=== PATIENT | female | born 1935 | race Caucasian/White ===

== ENCOUNTER → 2017-06-09 09:50 | Outpatient (CLI) | payer MEDICARE, BC ==
[2014-10-10 13:28] VITALS: BMI 27.1
[~2017-06-09 09:50] MED LIST: ASPIRIN EC81 M1 PO; ELIQUIS2.5 MG PO; METOPROLOL TART50 MG PO; PERCOCET 10/3251 TA1 PO; SYNTHROID50 MCG PO; VITAMIN D2000 UNIT PO; ZANTAC150 MG PO
== END | disposition home or self-care (01) ==
LOC: D.US 09:50
DX: R10.9 Unspecified abdominal pain (principal)

== ENCOUNTER → 2017-06-13 10:54 | Outpatient (CLI) | payer MEDICARE, BC ==
[2014-10-10 13:28] VITALS: BMI 27.1
== END | disposition home or self-care (01) ==
LOC: D.CT 10:54
DX: R93.5 Abnormal findings on diagnostic imaging of other abdominal regions, including retroperitoneum (principal)

== ENCOUNTER 2017-11-22 12:26 | Inpatient (IN) | payer MEDICARE, BC ==
[~2017-11-22] VITALS: Ht 167.6 cm; Wt 78.0 kg
--- NOTE | ~2017-11-22 | DS ---
PATIENT:SERENA MARX :35 MEDICAL RECORD: [id number] DISCHARGE SUMMARY ADMISSION DATE: 11/22/17 DISCHARGE DATE: 11/25/17 DATE OF ADMISSION: 11/22/2017. DATE OF DISCHARGE: 11/25/2017. ADMISSION DIAGNOSES: Right upper quadrant epigastric abdominal pain, anemia, dyspnea on exertion. DISCHARGE DIAGNOSES: Right upper quadrant abdominal pain, anemia. CONSULTS: GI, Carmella Garcia MD PROCEDURES: CT of the abdomen and pelvis, no significant findings. EGD, mild gastritis. PIPIDA scan, decreased functioning gallbladder. HOSPITAL COURSE: The patient had an uneventful hospital course with us. She had an elevated white count. On admission was started empirically on IV antibiotics, underwent procedures as noted above, no acute significant findings. She is tolerating regular diet. With her iron deficiency anemia, she will have a colonoscopy as an outpatient. Also, we discussed possible outpatient cholecystectomy with Dr. Vergara on followup. The patient is anxious to go home, discharged to home in significantly improved condition. Vital signs on discharge: Temperature 97.9, blood pressure 147/50, heart rate 80, respirations 18, O2 sat 98% on room air. The patient is ambulating independently. H&H is stable at 9.9 and 30.3. We will follow up for further outpatient treatment as an outpatient. DISCHARGE MEDICATIONS: Per med rec. PHYSICAL EXAMINATION: HEART: Regular rate and rhythm. LUNGS: Clear. ABDOMEN: Soft, bowel sounds positive. EXTREMITIES: Present times 4. NEUROLOGIC: Intact. DISPOSITION: The patient is discharged to home. Discussed discharge planning with the patient. She agrees with the plan. TRANSINT:[id number] Voice Confirmation ID: [id number] DOCUMENT ID: [id number] DANTE NEW DO at 0813 CC: [id number] DICTATION DATE: 11/25/17 0746 GERIATRIC NURSING ASSISTANT: 11/25/17 1119 DIS IN 11/25/17 [id number] [place] [address]
--- NOTE | ~2017-11-22 | HP ---
PATIENT: SERENA MARX MEDICAL RECORD: [id number] ACCOUNT: [id number] LOCATION:[facility] : 35 ADMISSION DATE: 11/22/17 HISTORY AND PHYSICAL EXAMINATION HISTORY: She is an 82-year-old female presents to the office with one-day history of abdominal pain with nausea and vomiting. She does state that she has been short of breath a little bit more over the last several months, easily short of breath on exertion. She does see Dr. Dennis. She states had a normal echo a few months back, but primarily presented because she was thinking she had a gallbladder issue. She was complaining of pain in right upper and midepigastric area of her abdomen with nausea and vomiting. Pain got quite severe last night. She has had some urinary frequency as well. On presentation in the office, her temperature was 99. Her white count was 11.7 with an H&H of 8.7 and 28.8. This was compared to an H&H of 11 and 35 about 5 months ago. She was admitted to the hospital for abdominal pain with anemia. Urine showed positive nitrites and WBCs on high-power field, consistent with UTI as well. PAST MEDICAL HISTORY: Significant for hypertension and hypothyroidism. She also has history of osteopenia. She does have history of some iron deficiency in the past, but very mild. MEDICATIONS: She has medicines at home that include metoprolol ER 50 mg daily, aspirin 81 mg daily, ranitidine 150 mg twice daily, Synthroid 50 mcg daily, vitamin D. SOCIAL HISTORY: She has a history of tobacco use, but quit over 40 years ago. 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 Colonoscopies in the past with some polyps removal, last done in [address] Garcia. FAMILY HISTORY: Noncontributory. REVIEW OF SYSTEMS: CONSTITUTIONAL: Little bit more complaining of some fatigue. HEENT: She denies any headaches, visual or auditory changes. No sore throat, rhinorrhea, or dysphagia. CARDIOPULMONARY: She denies any chest pain. She has had some mild dyspnea on exertion. She denies any cough or hemoptysis. GASTROINTESTINAL: Abdominal pain, better this morning but still present, about 3/10 right now. She currently has no nausea. She has not eaten since a little bit. She has had some loose stool today, had a lot of diarrhea and vomiting of yellowish emesis last night. She denies any black tarry stools that she has noticed recently or in the past couple of weeks. GENITOURINARY: She has had some urinary frequency. MUSCULOSKELETAL: No joint pain, swelling, or erythema. PHYSICAL EXAMINATION: VITAL SIGNS: Temperature 99.1, blood pressure 120/76, pulse of 80, respirations of 12. HEENT: PERRLA. EOMI. Pharynx clear. NECK: Supple. No JVD or adenopathy. HEART: S1, S2. No murmurs, rubs, or gallops. LUNGS: Clear with no rhonchi or wheezing. HISTORY AND PHYSICAL [id number] SERENA MARX ABDOMEN: Soft. Mild tenderness in right upper quadrant and midepigastric to palpation. No rebound, guarding, or rigidity. EXTREMITIES: No clubbing, cyanosis, or edema. Her white count was 11.7 with H&H of 8.7 and 28.8 with platelet count of 314. Positive nitrates on UA with trace blood and 5-10 wbc's per high-power field. Abdominal x-ray showed nonspecific bowel gas pattern. ASSESSMENT AND PLAN: Abdominal pain with anemia. Some dyspnea on exertion. We are going to get a stat CT of abdomen and pelvis. Because of anemia with symptomatic dyspnea on exertion, we are going to transfuse 2 units of packed red blood cells. We have asked Dr. Garcia to consult. Zofran and morphine p.r.n. We will start her on IV Invanz for the abdominal pain, possible cholecystitis, which also we will use to cover for what appears to be UTI. Urine culture is pending. Labs are pending. Continue with home metoprolol for hypertension and Synthroid for hypothyroidism. We will continue to follow clinically. TRANSINT:[id number] Voice Confirmation ID: [id number] DOCUMENT ID: [id number] FRANCISCO J PATEL DO at 0727 CC: [id number] DICTATION DATE: 11/22/17 1207 CAR OILER: 11/22/17 1601 DIS IN 11/25/17 [facility] [address] [place] [address]
[2017-11-22 14:31] LABS: BASOPHILS 0.2 % (0-2); EOSINOPHILS 2.4 % (0-7); HEMATOCRIT 28.2 % (36.0-48.0); HEMOGLOBIN 9.1 g/dL (12-16); IMMATURE GRANULOCYTES 0.3 % (0-5); LYMPHOCYTES 25.4 % (15-50); MCH 26.2 pg (26.0-34.0); MCHC 32.3 g/dL (31.0-37.0); MCV 81.3 fL (80.0-100.0); MEAN PLATELET VOLUME 10.7 fL (7.4-10.4); MONOCYTES 6.1 % (2-11); NEUTROPHILS 65.6 % (40-80); PLATELET COUNT 331 10x3/uL (130-400); RBC 3.47 10x6/uL (4.00-5.40); RDW 14.2 % (11.5-14.5); WBC 10.5 10x3/uL (4.8-10.8)
[2017-11-22 14:34] LABS: APTT 33.2 SECONDS (22.8-39.4); INR 1.03 (0.85-1.17); PROTIME 13.1 SECONDS (11.6-15.0)
[2017-11-22 14:42] LABS: ALBUMIN 3.4 g/dL (3.4-5.0); ANION GAP 11.1 mmol/L (8-16); BILIRUBIN - TOTAL 0.28 mg/dL (0.2-1.3); CALCIUM 9.3 mg/dL (8.5-10.1); CARBON DIOXIDE 26.2 mmol/L (21.0-32.0); CREATININE - SERUM 0.9 mg/dL (0.6-1.3); POTASSIUM - SERUM 4.3 mmol/L (3.5-5.1); PROTEIN - SERUM 7.8 g/dL (6.4-8.2)
[2017-11-22 14:47] LABS: % SATURATION 4 % (15-55); IRON 20 ug/dl (35-150); TOTAL IRON BIND CAPACITY 456 ug/dl (260-445); UNSAT IRON BIND CAPACITY 436 ug/dl (150-375)
[2017-11-22 14:52] LABS: THYROID STIMULATING HORMONE 2.58 uIU/mL (0.36-3.74)
[2017-11-22 15:02] VITALS: BP 153/62; BMI 27.8
[2017-11-22 17:41] VITALS: BP 153/62
[2017-11-22 20:53] VITALS: BP 137/60
[2017-11-23 04:45] VITALS: BP 148/68
[2017-11-23 04:52] LABS: APPEARANCE CLOUDY (CLEAR); BACTERIA MODERATE /hpf (NONE SEEN); BILIRUBIN NEGATIVE (NEGATIVE); COLOR YELLOW (YELLOW); EPITHELIAL CELLS 0-5 /hpf (0-5); GLUCOSE NEGATIVE (NEGATIVE); KETONE NEGATIVE (NEGATIVE); NITRITE POSITIVE (NEGATIVE); PROTEIN 1+ mg/dL (NEGATIVE); RED CELLS - URINE 0-5 /hpf (0-5); UROBILINOGEN NORMAL (NORMAL)
[2017-11-23 05:10] LABS: BASOPHILS 0.3 % (0-2); EOSINOPHILS 5.4 % (0-7); HEMATOCRIT 31.2 % (36.0-48.0); HEMOGLOBIN 10.3 g/dL (12-16); IMMATURE GRANULOCYTES 0.1 % (0-5); LYMPHOCYTES 28.8 % (15-50); MCH 27.5 pg (26.0-34.0); MCV 83.2 fL (80.0-100.0); MEAN PLATELET VOLUME 10.5 fL (7.4-10.4); MONOCYTES 10.5 % (2-11); NEUTROPHILS 54.9 % (40-80); RBC 3.75 10x6/uL (4.00-5.40); RDW 14.3 % (11.5-14.5)
[2017-11-23 05:15] LABS: WBC 6.9 10x3/uL (4.8-10.8)
[2017-11-23 05:16] LABS: PLATELET COUNT 253 10x3/uL (130-400)
[2017-11-23 05:26] LABS: ALBUMIN 2.7 g/dL (3.4-5.0); ANION GAP 9.2 mmol/L (8-16); BILIRUBIN - TOTAL 0.86 mg/dL (0.2-1.3); CALCIUM 8.2 mg/dL (8.5-10.1); CARBON DIOXIDE 27.9 mmol/L (21.0-32.0); POTASSIUM - SERUM 4.1 mmol/L (3.5-5.1); PROTEIN - SERUM 6.4 g/dL (6.4-8.2)
[2017-11-23 07:43] VITALS: BP 144/58
[2017-11-23 08:25] LABS: FOLATE (FOLIC ACID) - SERUM >20.0 ng/mL (>3.0)
[2017-11-23 12:28] VITALS: BP 106/67
[2017-11-23 14:41] VITALS: Ht 167.6 cm; Wt 78.0 kg
[2017-11-23 15:49] VITALS: BP 128/55
[2017-11-23 20:53] VITALS: BP 127/64
[2017-11-24 02:16] VITALS: BP 163/53
[2017-11-24 04:33] LABS: BASOPHILS 0.2 % (0-2); EOSINOPHILS 5.3 % (0-7); HEMATOCRIT 30.4 % (36.0-48.0); HEMOGLOBIN 9.9 g/dL (12-16); IMMATURE GRANULOCYTES 0.1 % (0-5); LYMPHOCYTES 23.9 % (15-50); MCHC 32.6 g/dL (31.0-37.0); MCV 83.1 fL (80.0-100.0); MEAN PLATELET VOLUME 10.7 fL (7.4-10.4); MONOCYTES 12.4 % (2-11); NEUTROPHILS 58.1 % (40-80); PLATELET COUNT 248 10x3/uL (130-400); RBC 3.66 10x6/uL (4.00-5.40); RDW 14.5 % (11.5-14.5); WBC 8.1 10x3/uL (4.8-10.8)
[2017-11-24 04:56] VITALS: BP 154/64
[2017-11-24 04:56] LABS: ALBUMIN 2.5 g/dL (3.4-5.0); ANION GAP 12.1 mmol/L (8-16); BILIRUBIN - TOTAL 0.31 mg/dL (0.2-1.3); CALCIUM 8.1 mg/dL (8.5-10.1); CARBON DIOXIDE 24.5 mmol/L (21.0-32.0); CREATININE - SERUM 0.9 mg/dL (0.6-1.3); POTASSIUM - SERUM 3.6 mmol/L (3.5-5.1)
[2017-11-24 07:51] VITALS: BP 147/59
[2017-11-24 12:10] VITALS: BP 174/77
[2017-11-24 20:00] VITALS: BP 161/70
[2017-11-25] VITALS: BP 152/63
[2017-11-25 04:00] VITALS: BP 147/50
[2017-11-25 04:06] LABS: BASOPHILS 0.3 % (0-2); EOSINOPHILS 5.2 % (0-7); HEMATOCRIT 30.3 % (36.0-48.0); HEMOGLOBIN 9.9 g/dL (12-16); IMMATURE GRANULOCYTES 0.1 % (0-5); LYMPHOCYTES 21.3 % (15-50); MCH 27.3 pg (26.0-34.0); MCHC 32.7 g/dL (31.0-37.0); MCV 83.5 fL (80.0-100.0); MEAN PLATELET VOLUME 10.3 fL (7.4-10.4); NEUTROPHILS 63.1 % (40-80); PLATELET COUNT 225 10x3/uL (130-400); RBC 3.63 10x6/uL (4.00-5.40); RDW 14.7 % (11.5-14.5); WBC 7.9 10x3/uL (4.8-10.8)
[2017-11-25 04:33] LABS: ALBUMIN 2.5 g/dL (3.4-5.0); ALKALINE PHOSPHATASE 97 U/L (46-116); ALT (SGPT) 27 U/L (10-68); CALC OSMOLALITY 283 mosm/kg (275-300); CALCIUM 7.7 mg/dL (8.5-10.1); CARBON DIOXIDE 26.5 mmol/L (21.0-32.0); CHLORIDE - SERUM 111 mmol/L (98-107); CREATININE - SERUM 0.7 mg/dL (0.6-1.3); GLUCOSE 106 mg/dL (74-106); MAGNESIUM - SERUM 1.8 mg/dL (1.8-2.4); PHOSPHOROUS 2.2 mg/dL (2.5-4.9); POTASSIUM - SERUM 3.7 mmol/L (3.5-5.1); PROTEIN - SERUM 6.1 g/dL (6.4-8.2); SODIUM 143 mmol/L (136-145); UREA NITROGEN 10 mg/dL (7-18); eGFR NON AFRICAN AMERICAN 85 mL/min (90-120)
[2017-11-25] MEDS ORDERED: NYSTATIN15 GM TOPICAL (07:39)
[2017-11-25 08:10] VITALS: BP 146/74
== END 2017-11-25 11:45 | disposition home or self-care (01) | DRG 812 ==
LOC: D.MS 12:26 → D.SDCHOLD 12:26 → D.MS 12:52
PROVIDERS: Family Medicine; Internal Medicine Gastroenterology
PROC: 0DB78ZX Excision of Stomach, Pylorus, Via Natural or Artificial Opening Endoscopic, Diagnostic (ICD-10-PCS; 2017-11-23)
PROC: 0DB98ZX Excision of Duodenum, Via Natural or Artificial Opening Endoscopic, Diagnostic (ICD-10-PCS; principal; 2017-11-23 16:00)
DX: D50.9 Iron deficiency anemia, unspecified (principal); N39.0 Urinary tract infection, site not specified; R10.13 Epigastric pain; R10.11 Right upper quadrant pain; I10 Essential (primary) hypertension; E03.9 Hypothyroidism, unspecified; K29.70 Gastritis, unspecified, without bleeding; K44.9 Diaphragmatic hernia without obstruction or gangrene; K57.90 Diverticulosis of intestine, part unspecified, without perforation or abscess without bleeding

== ENCOUNTER → 2019-08-27 09:17 | Outpatient (CLI) | payer MEDICARE, BC ==
[2017-11-23 14:41] VITALS: BMI 27.7
--- NOTE | 2019-08-30 16:48 | ST ---
PATIENT:SERENA MARX MEDICAL RECORD: [id number] SEX: F LOCATION:[facility] ORDER #: ADMISSION DATE: 08/27/19 AGE OF PATIENT: 84 REFERRING PHYSICIAN: INTERPRETING PHYSICIAN: HUMERA FELTON MD DATE OF SERVICE: 08/27/2019 PROCEDURE: Nuclear stress test. INDICATION: Angina, shortness of breath, hypertension. She was exercised on standard Lexiscan protocol with 25 mCi of sestamibi injected at peak stress, 8 mCi used previously for rest images. FINDINGS: Gated SPECT reveals a preserved ejection fraction at greater than 80% with good wall motioning and thickening and brightening throughout all segments. SPECT imaging: Cardiolite was used as myocardial perfusion agent. There is reversibility anteriorly and laterally. This includes the basal, mid, apical, anterior segments as well as the apical lateral, mid lateral, basal lateral segments. The degree of reversibility is mild. The amount of myocardium involved is moderate to large. OVERALL IMPRESSION: This is an intermediate risk abnormal nuclear stress test, reversible changes anteriorly and laterally suggestive of hemodynamically significant coronary artery disease. TRANSINT:[id number] Voice Confirmation ID: [id number] DOCUMENT ID: [id number] HUMERA FELTON MD at 1648 CC: [id number] DICTATION DATE: 08/28/19 0903 MANAGER CARDIAC: 08/29/19 0654 DEP CLI 08/27/[address] [address]
--- NOTE | 2019-08-30 16:48 | EC ---
PATIENT:SERENA MARX DATE OF SERVICE: 08/27/19 SEX: F MEDICAL RECORD: [id number] DATE OF : 35 [facility] AGE OF PATIENT: 84 ADMISSION DATE: 08/27/19 REFERRING PHYSICIAN: INTERPRETING PHYSICIAN: HUMERA DENNIS MD ECHOCARDIOGRAM REPORT ECHO CHARGES 4 ECHO COMPLETE Date: 08/27/19 CLINICAL DIAGNOSIS: MITRAL/TRICUSPID REGURG, DYSPNEA ON EXERTION, ANGINA ECHOCARDIOGRAPHIC MEASUREMENTS (adult normal given) AC root (d.<3.7cm) 2.7 cm LV Septum d (<1.2 cm> 0.90 cm Valve Excursion 1.4 cm LV Septum (systole) 1.2 cm Left Atria (s.<4.0cm> 3.2 cm LVPW d(<1.2cm) 1.2 cm RV (d.<2.3cm) 3.7 cm LVPW (sytole) 1.4 cm LV diastole(<5.6CM) 4.7 cm MV E-F(>70mm/sec) cm LV systole 3.5 cm LVOT Diameter 1.7 cm MV exc.(>10mm) 1.3 cm Est.ejection fraction (50-75%) % DOPPLER: LVIT cm/sec A 96.0 cm/sec E 82.0 cm/sec LA cm/sec RVSP 38 mmHg LVOT 81 cm/sec AOP1/2T m/s Asc. Ao 118 cm/sec RVOT 72 cm/sec RA cm/sec PA 105 cm/sec AV Gradient Peak 5.59 mmHg AV Mean 2.98 mmHg AV Area 1.8 cm MV Gradient Peak 3.40 mmHg MV Mean 1.55 mmHg MV Area cm COMMENTS: Fisher Spear: Osiris [employer] Cloud Physicist: 1 Dr. Dennis TAPE# PACS Pericardial Effusion N DATE OF SERVICE: 08/27/2019 FINDINGS: 1. Left ventricular chamber size is within normal limits. Left ventricular systolic function is normal at 60% to 65%. 2. Left atrium is within normal limits at 3.2 cm. Right atrium and right ventricle chamber sizes are mildly dilated. 3. Valvular structure have normal structure and motion. 4. Doppler interrogation reveals trace mitral regurgitation, [id number] tricuspid regurgitation, no other valvular insufficiency or stenosis. Pulmonary ECHOCARDIOGRAM REPORT [id number] FRANCISCO J,DORTHA D systolic pressure estimated at 38 mmHg. 5. No evidence of pericardial effusion or left ventricular thrombus. TRANSINT:[id number] Voice Confirmation ID: [id number] DOCUMENT ID: [id number] HUMERA DENNIS MD at 1648 CC: [id number] DICTATION DATE: 08/27/19 1333 AIR COMPRESSOR OPERATOR: 08/27/19 2304 DEP CLI 08/27/19 [place] [id number] [place] [id number]
== END | disposition home or self-care (01) ==
LOC: D.HCCARDIO 09:17 → D.HCCECHO 10:00
PROVIDERS: ATTEND Internal Medicine Interventional Cardiology
DX: I20.9 Angina pectoris, unspecified (principal)

== ENCOUNTER 2019-09-04 07:48 | Outpatient (CLI) | payer MEDICARE, BC ==
[~2019-09-04] VITALS: Ht 166.4 cm; Wt 80.0 kg
--- NOTE | ~2019-09-04 | HEMODYNAMI ---
PATIENT:SERENA SPAIN MEDICAL RECORD: [id number] : 35 LOCATION:[facility] ADMISSION DATE: 09/04/19 Generatedon:09/04/20199:49 Patient name: SERENA SPAIN Patient #: [id number] SSN: : 1935 Date of study: 09/04/2019 Page: Of Hemodynamic Procedure Report Patient Data Patient Demographics Procedure consent was obtained First Name: SERENA Gender: Female Last Name: FRANCISCO J : 1935 [facility] Initial: D Age: 84 year(s) Patient #: [id number] Race: Unknown Additional ID: [id number] Contact details Address: [place] [address] State: [place] City: [place] Zip code: [address] Past Medical History Allergies: No known allergies Admission Admission Data Admission Date: 09/04/2019 Admission Time: 7:48 Arrival Date: 09/04/2019 Arrival Time: 0:00 Insurance Payor: Medicare Height (in.): 166 BSA: 3.72 (m2) Height (cm.): 421.64 BMI: 4.54 (kg/m2) Weight (lbs.): 178 Weight (kg.): 80.74 Current Diagnosis Diagnosis Description Unstable angina Lab Results Lab Result Date: 09/04/2019 Lab Result Time: 0:00 Biochemistry Name Units Result Min Max Creatinine mg/dl 1 --(--*-)-- 0.6 1.3 eGFR ml/min 56 *-(----)-- 90 120 NONAFRICAN CBC Name Units Result Min Max Hematocrit % 34 *-(----)-- 42 54 Hemoglobin g/dl 11.3 *-(----)-- 13.5 17.5 Procedure Procedure Types Cath Procedure Diagnostic Procedure LHC [facility] w/Coronaries FFR/IVUS FFR Initial FFR Additional Sedation Charges Moderate Sedation up to 15 minutes PCI Procedure Coronary Stent Coronary Stent Initial Hemochron ACT Test Procedure Description Procedure Date Procedure Date: 09/04/2019 Procedure Start Time: 9:31 Procedure End Time: 9:47 Procedure Staff Name Function Tyrel Dennis MD Performing Physician Carissa Verma RN Monitor Janeth Roblero RT Scrub Gideon Marvin RN Nurse Procedure Data Cath Procedure Fluoroscopy Diagnostic fluoroscopy Total fluoroscopy Time: 2.8 time: 2.8 min min Diagnostic fluoroscopy Total fluoroscopy dose: 283 dose: 283 mGy mGy Contrast Material Contrast Material Type Amount (ml) Isovue 300 46 Entry Location Entry Primary Successful Side Size Upsize Upsize Entry Closure Succes sful Closure Location (Fr) 1 (Fr) 2 (Fr) Remarks Device Remarks Femoral Right 5 Fr 6 Fr Exoseal artery Short Estimated blood loss: 10 ml Diagnostic catheters Device Type Used For End Catheter Placement MULTIPACK Pigtail 5 Fr Procedure catheter MULTIPACK JL 4.0 5Fr Procedure catheter MULTIPACK 3DRC 5Fr Procedure catheter Procedure Complications No complications Procedure Medications Medication Administration Route Dosage Oxygen etCO2 Nasal cannula 2 l/min Heparin Flush Bag added to field 2 bags (1000units/500ml NS) 0.9% NaCl I.V. 100 ml/hr Lidocaine 2% added to field 20 Fentanyl I.V. 50 mcg Versed I.V. 1 mg Fentanyl I.V. 50 mcg Heparin Bolus I.V. 4000 units Integrilin (Bolus I.V. 7.3 ml 2mg/ml) Integrilin (Bolus wasted 2.7 ml 2mg/ml) Plavix P.O. 600 mg Hemodynamics Rest BSA: 3.72 (m2) HGB: 11.3 (g/dl) O2 Consumption: Estimated: 332.06 (ml/min) O2 Co nsumption indexed: Estimated:89.26 (ml/min/m) Heart Rate: 71 (bpm) Snapshots Pre Cath Intra NCS Post Cath Vital Signs Time Heart Resp SPO2 etCO2 NIBP (mmHg) Rhythm Pain Sedation Rate (ipm) (%) (mmHg) Status Level (bpm) 9:11:57 72 17 99 0 176/81(106) NSR 0 (11) 10(A) , No pain 9:16:13 70 18 97 32.9 165/76(98) NSR 0 (11) 10(A) , No pain 9:20:35 73 17 96 35.9 159/74(99) NSR 0 (11) 10(A) , No pain 9:24:57 74 16 96 35.9 134/67(97) NSR 0 (11) 10(A) , No pain 9:29:13 66 16 100 23.9 138/59(92) NSR 0 (11) 9(A) , No pain 9:33:29 64 16 100 29.9 136/63(92) NSR 0 (11) 9(A) , No pain 9:37:37 75 17 100 30.6 149/78(117) NSR 0 (11) 9(A) , No pain 9:41:53 68 17 100 29.1 133/73(106) NSR 0 (11) 9(A) , No pain 9:46:07 66 17 100 27.6 134/64(111) NSR 0 (11) 9(A) , No pain Medications Time Medication Route Dose Verified Delivered Reason Notes Effectiveness by by 9:11:08 Oxygen etCO2 2 Tyrel Meneses Per physician Nasal l/min Sonny Marvin RN cannula 9:11:22 Heparin Flush added 2 Tyrel Meneses Per physician Bag to bags Sonny Marvin RN (1000units/500ml field NS) 9:11:35 0.9% NaCl I.V. 100 Tyrel Meneses Per physician ml/hr Sonny Marvin RN 9:11:44 Lidocaine 2% added 20ml Tyrel Meneses for local to vial Sonny Marvin RN anesthetic field 9:24:55 Fentanyl I.V. 50 Tyrel Meneses for sedation mcg oSnny Marvin RN 9:25:01 Versed I.V. 1 mg Tyrel Meneses for sedation Sonny Marvin RN 9:39:47 Fentanyl I.V. 50 Tyrel Spainy for sedation mcg Sonny Marvin RN 9:39:57 Heparin Bolus I.V. 4000 Tyrel Meneses for units Sonny Marvin RN anticoagulation 9:40:10 Integrilin I.V. 7.3 Tyrel Spainy for (Bolus 2mg/ml) ml Sonny Marvin RN anticoagulation 9:41:49 Integrilin wasted 2.7 Tyrel Meneses for (Bolus 2mg/ml) ml Sonny Marvin RN anticoagulation 9:46:12 Plavix P.O. 600 Tyrel Meneses for mg Tauth MD Marvin RN antiplatelet therapy Procedure Log Time Note 9:00:46 Informed consent obtained and on chart 9:01:28 Procedure Status Elective Heart Cath (OP). 9:01:29 Gideon Marvin RN sent for patient. Start room use. 9:01:30 Time tracking: Regular hours (M-F 7:00 - 5:00) 9:01:33 Plan of Care:Hemodynamics will remain stable., Cardiac rhythm will remain stable., Comfort level will be maintained., Respiratory function will remain adequate., Patient/ family verbilizes understanding of procedure., Procedure tolerated without complication., Recovers from procedure without complications.. 9:02:38 H&P Date Dictated: 08/16/2019 Within 30 days and on chart., H&P Addendum completed by physician on day of procedure. (MUST COMPLETE FOR ALL OUTPATIENTS). 9:02:42 Patient allergic to No known allergies 9:06:11 Patient Weight : 178 lbs 9:06:12 Arrival Date: 09/04/2019 12:00:00 AM 9:10:48 Vital chart was started 9:11:08 Oxygen 2 l/min etCO2 Nasal cannula was administered by Gideon Marvin RN; Per physician; Verbal order read back and verified. 9:11:08 Insurance Payor : Medicare 9:11:22 Heparin Flush Bag (1000units/500ml NS) 2 bags added to field was administered by Gideon Marvin RN; Per physician; Verbal order read back and verified. 9:11:33 Patient Height : 166 inches 9:11:35 0.9% NaCl 100 ml/hr I.V. was administered by Gideon Marvin RN; Per physician; Verbal order read back and verified. 9:11:36 Current Diagnosis : Unstable angina 9:11:44 Lidocaine 2% 20ml vial added to field was administered by Gideon Marvin RN; for local anesthetic; Verbal order read back and verified. 9:12:46 Diagnostic Cath Status : Elective 9:13:20 ACC Patient presents with Unstable Angina CCS Anginal Class 3--Marked limitation of physical activity, angina occurs with ordinary activity.. 9:13:26 Patient received from Pre/Post Procedure Room to [facility]3] 2 Alert and oriented. Tansferred to table in Supine position. 9:13:33 Warm blankets applied, and mary hugger turned on for patient comfort. 9:13:33 Correct patient and procedure confirmed by team. 9:13:34 ECG and BP/O2 sat monitors applied to patient. 9:13:35 Baseline sample Acquired. 9::40 Rhythm: sinus rhythm 9::41 Full Disclosure recording started 9::44 Pre-procedure instructions explained to patient. ::44 Pre-op teaching completed and patient verbalized understanding. 9:13:50 Family in waiting room. 9:13:52 Patient NPO since Midnight. 9:13:55 Is the patient allergic to Iodine/contrast media? No. 9:13:57 Was the patient premedicated? N/A 9:14:00 Is patient on blood thinner?No 9:14:03 Patient diabetic? No. 9:14:04 If diabetic: On Metformin? N/A 9:14:06 Patient not . Patient is over age 55. 9:14:13 Previous problem with sedation/anesthesia? No ? 9:14:16 Snore? No 9:14:18 Sleep apnea? No 9:14:19 Deviated septum? No 9:14:20 Opens mouth fully? Yes 9:14:21 Sticks out tongue? Yes 9:14:24 Airway obstruction? No ? 9:14:31 Dentures? Yes top denture out 9:14:38 Pre procedure: right dorsailis pedis pulse 2+ Normal; easily identifiable; not easily obliterated 9:14:43 Patient pain scale 0/10 ?. 9:14:51 IV patent on arrival in right hand with 0.9% NaCl at KVO. 9:15:10 Stress Test: yes; abnormal anterior laterally 9:15:16 Right groin area was prepped with chlora-prep and draped in sterile fashion 9:15:17 Alarms reviewed by R. N. 9:15:17 Sharps counted by scrub and verified by R.N. 9:17:19 Risk of Mortality: 0.4 9:17:22 Risk of blood transfusion: 1.4 9:17:25 Risk of ALBA: 2.4 9:24:39 --------ALL STOP TIME OUT------ 9:24:40 Final Timeout: patient, procedure, and site verified with staff and physician. All members of the team are in agreement. ::44 Right groin site verified by team. 9:24:48 Fire Safety Assessment: A--An alcohol-based skin anteseptic being used preoperatively., C--Open oxygen or nitrous oxide is being used., D--An ESU, laser, or fiber-optic light is being used. 9:24:55 Fentanyl 50 mcg I.V. was administered by Gideon Marvin RN; for sedation; Verbal order read back and verified. 9:24:58 Physical assessment completed. ASA score P 2 - A patient with mild systemic disease as per Tyrel Dennis MD. 9:25:01 Versed 1 mg I.V. was administered by Gideon Marvin RN; for sedation; Verbal order read back and verified. 9:25:49 3a) 45-59 Moderately reduced kidney function. 9:26:05 Maximum allowable contrast dose (3.7 X eGFR X 0.75)155 ml. 9:26:08 Sedation plan: IV Moderate Sedation Medication:Versed, Fentanyl 9:26:25 Use device set Femoral Dx 9:26:27 ACIST Syringe (15948) opened to sterile field. 9:26:27 Bag Decanter (2002S) opened to sterile field. 9:26:28 Medline Cath Pack ([id number]) opened to sterile field. 9:26:30 ACIST Hand Control (75013) opened to sterile field. 9:26:31 ACIST Manifold (66701) opened to sterile field. 9:26:38 DIAGNOSTIC Multipack 5Fr catheter set ([id number]) opened to sterile field. 9:26:41 SHEATH 5FR [place] (ISN328) opened to sterile field. 9:26:42 EMERALD Guide Wire (712-346) opened to sterile field. 9:27:36 Lab Result : eGFR NONAFRICAN 56 ml/min 9:27:36 Lab Result : Hemoglobin 11.3 g/dl 9::36 Lab Result : Creatinine 1 mg/dl 9:27:36 Lab Result : Hematocrit 34 % 9:30:07 Procedure started. 9:31:20 Local anesthetic to right femoral artery with Lidocaine 2% by Tyrel Dennis MD.INITIAL ACCESS ONLY 9:31:29 A 5 Fr sheath was inserted into the Right Femoral artery 9:31:49 A MULTIPACK Pigtail 5 Fr catheter was advanced over the wire and used for Procedure. 9:32:15 LV gram done using LOZANO 9:32:24 EF : 55 % 9:32:30 Injector settings: Ml/sec: 10, Volume: 20, 9:32:41 Catheter removed. 9:32:49 A MULTIPACK JL 4.0 5Fr catheter was advanced over the wire and used for Procedure. 9:33:36 LCA angiography performed. 9:33:39 Catheter removed. 9:34:01 A MULTIPACK 3DRC 5Fr catheter was advanced over the wire and used for Procedure. 9:34:24 RCA angiography performed. 9:34:27 Catheter removed. 9:34:30 Proceeding to intervention. 9:35:14 [place] Verrata Plus pressure wire (60459H) opened to sterile field. 9:35:15 GUIDE 6FR XBC 3.5 ([id number]) opened to sterile field. 9:35:15 SHEATH 6FR [place] (UWN242) opened to sterile field. 9:35:16 INFLATOR Merit BasixCompak (DA6037) opened to sterile field. 9:35:26 Sheath upsized to a 6 Fr Short. 9:35:39 6 Fr XBC 3.5 guide catheter was inserted over the wire 9:36:04 FFR/IFR wire advanced. 9:36:38 Baseline FFR 0.98. 9:37:30 Wire advanced across lesion. 9:37:38 Diag1 lesion measured at 0.93 with IFR 9:37:59 LAD lesion measured at 0.76 with IFR 9:39:01 ACC Pre-intervention MARSHA Flow is 3. 9:39:11 Pre PCI Site: [place] LAD has 70% stenosis. 9:39:47 Fentanyl 50 mcg I.V. was administered by Gideon Marvin RN; for sedation; Verbal order read back and verified. 9:39:54 Place stent Inflation Number: 1 A INTEGRITY RX 3.0 x 26 stent ([id number]) was prepped and advanced across the Prox LAD . The stent was deployed at 13 JUAN C for 0:00 (min:sec) . 9:39:57 Heparin Bolus 4000 units I.V. was administered by Gideon Marvin RN; for anticoagulation; Verbal order read back and verified. 9:40:04 Stent catheter was removed intact over wire. 9:40:05 Wire removed. 9:40:06 Guide catheter removed. 9:40:10 Integrilin (Bolus 2mg/ml) 7.3 ml I.V. was administered by Gideon Marvin RN; for anticoagulation; Verbal order read back and verified. 9:41:04 Sheath removed intact; hemostasis achieved with Exoseal to the Right Femoral artery. 9:41:49 Integrilin (Bolus 2mg/ml) 2.7 ml wasted was administered by Gideon Marvin RN; for anticoagulation; Verbal order read back and verified. 9:42:42 Procedure ended.(Physican Out) 9:43:16 Fluoroscopy time 02.80 minutes. 9:43:20 Flurop Dose total: 283 9:43:20 Fluoroscopy dose: 283 mGy 9:43:23 Dose Area Product 44208 mGy/cm. 9:43:26 Contrast amount:Isovue 300 46ml. 9:43:29 Maximum allowable dose exceeded? No. 9:43:39 Sharps counted by scrub and verified by R.N. 9:43:55 ACT drawn and resulted at 197 seconds. (normal therapeutic range 180-240 seconds). 9:44:03 Insertion/operative site no bleeding no hematoma. 9:44:07 Post-op/insertion site Right Femoral artery dressed using a 4 x 4 and Tegaderm. 9:44:11 Post right femoral artery:stable, soft, clean and dry 9:44:13 Post Procedure Pulses reassessed and unchanged 9:44:17 Post procedure: right dorsailis pedis pulse 2+ Normal; easily identifiable; not easily obliterated. 9:44:21 Post-procedure physical assessment completed. ASA score P 2 - A patient with mild systemic disease as per Tyrel Dennis MD. 9:44:23 Post procedure rhythm: unchanged. 9:44:26 Estimated blood loss: 10 ml 9:44:30 Post procedure instruction explained to patient.Patient verbalizes understanding. 9:44:32 Patient needs reinforcement of post procedure teaching. 9:45:40 Procedure type changed to Cath procedure, Diagnostic procedure, LHC, LHC w/Coronaries, FFR/IVUS, FFR Initial, FFR Additional, Sedation Charges, Moderate Sedation up to 15 minutes, PCI procedure, Coronary Stent, Coronary Stent Initial, Hemochron ACT Test 9:46:03 EXOSEAL 6Fr (EX600) opened to sterile field. 9:46:12 Plavix 600 mg P.O. was administered by Gideon Marvin RN; for antiplatelet therapy; Verbal order read back and verified. 9:46:23 Procedure and supply charges have been captured, reviewed, submitted and are correct. 9:46:26 Procedure Complication : No complications 9:47:04 Vital chart was stopped 9:47:06 [facility] Findings: MVD- PCI performed (see procedure note) 9:47:07 Operative report dictated upon procedure completion. 9:47:07 See physician's report for complete and final results. 9:47:09 Report given to Pre/Post Procedure Room. 9:47:12 Patient transfered to Pre/Post Procedure Room with Stretcher. 9:47:16 Procedure ended. 9:47:16 Full Disclosure recording stopped 9:47:28 ACC-PCI Only Patient was given prescriptions, or instructed by Tyrel Dennis MD to start/continue the following medications upon discharge: Plavix 9:47:29 End room use (Document Last) Intervention Summary Intervention Notes Time ActionType Lesion and Equipment Action# Pressure Duration Attributes Used 9:39:54 Place stent Prox LAD INTEGRITY RX 1 13 00:00 3.0 x 26 stent ([id number]) Device Usage Item Name Manufacture Quantity Catalog Hospital Part Current Mini mal Lot# / Number Charge Number Stock Stock Serial# Code ACIST Acist 1 98070 636624 483187 203717 20 Syringe Medical (89867) Systems Inc Bag Decanter Microtek 1 2001S 858093 49041 042539 5 () Medical Inc. Medline Cath Medline 1 [id number] 753001 74482 038508 5 Pack ([id number]) ACIST Hand Acist 1 80426 117875 162703 514640 5 Control Medical (20574) Systems Inc ACIST Acist 1 95267 409707 220443 511919 5 Manifold Medical (06760) Systems Inc DIAGNOSTIC Cardinal 1 MS4030 748310 22634 213660 30 Multipack Health 5Fr catheter set (XL1890) SHEATH 5FR Terumo 1 VSF528 000304 221180 396688 5 [place] (NCI174) EMERALD Cardinal 1 183-708 400771 533871 797465 5 Guide Wire Health (672-362) MULTIPACK Cardinal 1 276612 5 Pigtail 5 Fr Health catheter MULTIPACK JL Cardinal 1 710779 5 4.0 5Fr Health catheter MULTIPACK Cardinal 1 369701 5 3DRC 5Fr Health catheter [place] 1 85427L 048742 247635165 664925 5 Verrata Plus pressure wire (16604M) GUIDE 6FR Cardinal 1 [id number] 992596 48287 380770 5 XBC 3.5 Health (05461574) SHEATH 6FR Terumo 1 XPN943 144623 150567 080419 40 [place] (CPO776) INFLATOR Merit 1 CL2879 717179 827441 278601 15 Merit Medical BasixCompak (UR4448) INTEGRITY RX Medtronic 1 [id number] 796549 781048 171314 5 [id number] 3.0 x 26 stent ([id number]) EXOSEAL 6Fr Cardinal 1 EX600 005493 396530 842867 10 (EX600) Health Signature Audit [place] Stage Time Signature Unsigned Intra-Procedure 09/04/2019 Carissa Verma 9:47:40 AM RN Intra-Procedure 09/04/2019 Gideon Marvin 9:49:29 AM RN Intra-Procedure 09/04/2019 Tyrel Dennis 9:49:50 AM Signatures Performing Physician : Signature : Tyrel Dennis MD Date : Time : Monitor : Carissa Verma Signature : RN Date : Time : Nurse : Gideon Marvin RN Signature : Date : Time : [facility] [address] [place] [address]
--- NOTE | ~2019-09-04 | OP ---
PATIENT NAME: SERENA MARX MEDICAL RECORD: [id number] :35 LOCATION:D.CAT ADMISSION DATE: SURGEON: HUMERA FELTON MD DATE OF OPERATION: 09/04/2019 PROCEDURES: 1. PTCA stent LAD. 2. IFR. 3. Left heart catheterization. 4. Selective coronary angiography. 5. Left ventriculogram. INDICATION: Angina and coronary artery disease. PROCEDURE IN DETAIL: After informed consent was obtained and after a detailed description of risks, benefits as well as alternative therapies, the patient elected to proceed with angiogram and angioplasty. The right femoral area was prepped and draped in normal sterile fashion. Right femoral artery was cannulated via modified Seldinger technique with placement of 6-[place] sheath. All catheters exchanged through this sheath. FINDINGS: Left ventriculogram was performed in standard 30-degree LOZANO view, reveals good cardiac wall motion throughout all segments. Overall ejection fraction estimated at 60%. SELECTIVE CORONARY ANGIOGRAPHY: 1. Left main showed no significant angiographic disease. 2. Left anterior descending has a questionable 70% stenosis in the proximal vessel. This correlates with perfusion defect for nuclear stress testing and IFR was abnormal. 3. Left circumflex has mild irregularities, but no flow-limiting stenosis. 4. The right coronary artery has mild irregularities, but no flow-limiting stenosis. PTCA STENT OF THE LAD: The stent used was a 3.0 x 26 mm Integrity. Result was 0% residual stenosis. OVERALL IMPRESSION: Successful percutaneous transluminal coronary angioplasty stent of the left anterior descending going from 70% initial stenosis with abnormal IFR and abnormal nuclear stress test to 0% residual stenosis. TRANSINT:[id number] Voice Confirmation ID: [id number] DOCUMENT ID: [id number] HUMERA FELTON MD CC: [id number] DICTATION DATE: 09/04/19 0946 OBSTETRICS GYNECOLOGY MD: 09/04/19 1638 DEP CLI 09/04/19 [id number] [place] [address]
[~2019-09-04 07:48] MED LIST changes: +NYSTATIN15 GM TOPICAL
[2019-09-04] MEDS ORDERED: PEPCID AC20 MG PO (08:35)
[2019-09-04 08:44] VITALS: BP 164/70; Ht 166.4 cm; Wt 80.0 kg
[2019-09-04 09:05] LABS: BASOPHILS 0.5 % (0-2); EOSINOPHILS 3.1 % (0-7); HEMATOCRIT 34.1 % (36.0-48.0); HEMOGLOBIN 11.3 g/dL (12-16); IMMATURE GRANULOCYTES 0.2 % (0-5); LYMPHOCYTES 29.4 % (15-50); MCH 28.8 pg (26.0-34.0); MCHC 33.1 g/dL (31.0-37.0); MEAN PLATELET VOLUME 10.6 fL (7.4-10.4); MONOCYTES 7.5 % (2-11); NEUTROPHILS 59.3 % (40-80); RBC 3.92 10x6/uL (4.00-5.40); RDW 15.2 % (11.5-14.5); WBC 8.8 10x3/uL (4.8-10.8)
[2019-09-04 09:07] LABS: PLATELET COUNT 311 10x3/uL (130-400)
[2019-09-04 09:22] LABS: ANION GAP 10.9 mmol/L (8-16); CALCIUM 9.1 mg/dL (8.5-10.1); CHOL - HDL RATIO 3.3 ratio (2.3-4.1); POTASSIUM - SERUM 3.9 mmol/L (3.5-5.1)
--- NOTE | 2019-09-04 10:00 | NUR ---
REC'D TO ROOM 7 VIA STRETCHER FROM TRAIN CONTROL ELECTRONIC TECHNICIAN. MONITORS ESTAB. FAMILY AT BS. SEE MANAGER MOTOR. ALARMS ON AND C/L IN REACH.
[2019-09-04] MEDS ORDERED: PLAVIX75 MG PO (10:10)
--- NOTE | 2019-09-04 10:15 | NUR ---
R GROIN SITE SOFT, NO S/S BLEEDING OR HEMATOMA, PULSES PALP. VSS.
--- NOTE | 2019-09-04 10:44 | NUR ---
R GROIN SITE C/D/I, NO S/S BLEEDING OR HEMATOMA. VSS. PT DENIES PAIN OR NEEDS. DAUGHTER REMAIN AT BS.
--- NOTE | 2019-09-04 10:55 | NUR ---
DR. FELTON IN TO SEE PT AND UPDATE FAMILY.
[2019-09-04] MEDS ORDERED: PRAVACHOL20 MG PO (10:58)
--- NOTE | 2019-09-04 11:15 | NUR ---
R GROIN SITE SOFT, C/D/I. PT TAKING SIPS OF WATER WITHOUT DIFFICULTY. DAUGHTER AT BS. ALARMS ON.
--- NOTE | 2019-09-04 11:45 | NUR ---
PT VOIDED 150ML CLEAR, YELLOW URINE ON BED GANT. R GROIN SITE SOFT, NO S/S BLEEDING OR HEMATOMA.
--- NOTE | 2019-09-04 12:45 | NUR ---
R GROIN SITE SOFT, NO S/S BLEEDING OR SWELLING. HOB ELEVATED AND PUDDING PROVIDED PER PT REQUEST. C/L IN REACH.
--- NOTE | 2019-09-04 13:11 | NUR ---
PT VOIDED 250ML ON BEDPAN. RUBI-CARE PROVIDED. PT REPOSITIONED UP IN BED. DENIES OTHER NEEDS. DAUGHTER AT BS.
--- NOTE | 2019-09-04 13:30 | NUR ---
R GROIN SITE SOFT, C/D/I. PIV D/C'D INTACT, DSG APPLIED. PT ALLOWED TO GET UP AND GET DRESSED WITH DAUGHTER ASSISTING.
--- NOTE | 2019-09-04 13:42 | NUR ---
ALL D/C INSTRUCTIONS REVIEWED WITH PT AND DAUGHTER, INCLUDING RESTRICTIONS, MEDS AND FOLLOW-UP. 1345 - PT D/C'D VIA W/C TO PRIVATE VEHICLE WITH ALL BELONGINGS AND PAPERWORK.
== END 2019-09-04 13:45 | disposition home or self-care (01) ==
LOC: D.CATH 07:48
PROVIDERS: ATTEND Internal Medicine Interventional Cardiology
DX: I25.119 Atherosclerotic heart disease of native coronary artery with unspecified angina pectoris (principal); E78.5 Hyperlipidemia, unspecified; I10 Essential (primary) hypertension; I05.9 Rheumatic mitral valve disease, unspecified; E03.9 Hypothyroidism, unspecified; R06.09 Other forms of dyspnea; I49.3 Ventricular premature depolarization

== ENCOUNTER → 2020-03-11 17:30 | Outpatient (CLI) | payer MEDICARE, BC ==
[2019-09-04 08:44] VITALS: BMI 28.9
[~2020-03-11 17:30] MED LIST changes: +PEPCID AC20 MG PO; +PLAVIX75 MG PO; +PRAVACHOL20 MG PO
[2020-03-11 18:12] LABS: LDL-HDL RATIO 1.7 ratio (1.5-3.5)
== END | disposition home or self-care (01) ==
LOC: D.LABREF 17:30
PROVIDERS: ATTEND Internal Medicine Cardiovascular Disease
DX: I25.10 Atherosclerotic heart disease of native coronary artery without angina pectoris (principal); E78.5 Hyperlipidemia, unspecified

== ENCOUNTER → 2020-11-17 09:16 | Outpatient (CLI) | payer MEDICARE, BC ==
[2019-09-04 08:44] VITALS: BMI 28.9
== END | disposition home or self-care (01) ==
LOC: D.HCCECHO 09:16
PROVIDERS: ATTEND Internal Medicine Cardiovascular Disease
DX: I25.10 Atherosclerotic heart disease of native coronary artery without angina pectoris (principal)